=== PATIENT | female | born 2000 | race Caucasian/White ===

== ENCOUNTER → 2019-02-16 | Outpatient (CLI) | payer OTHER ==
--- NOTE | 2019-02-16 13:50 | PFTRPT ---
Height: 70.00 Inches Weight: 179.00 Lbs BSA: 1.99 Diagnosis: POSSIBLE ASTHMA DATE OF STUDY: 02/16/2019 ORDERED BY: Allan Wilson Jr., PA-C Spirometry: Pre and post bronchodilator study of excellent technical quality. Forced vital capacity reduced. FEV1 out of proportion. Obstructive index is, therefore, reduced. Flow Volume Loop: Expiratory limb of the flow volume loop is consistent with significant flow rate limitation. No significant bronchodilator response identified. Lung Volumes: Total lung capacity reduced. Residual volume is in proportion. Diffusing Capacity: Diffusing capacity reduced but is appropriate for alveolar volume. Hemoglobin: Hemoglobin acceptable at 14.5. Airway Mechanics: Airway resistance and conductance are normal. Patient had significant difficulties reproducing the required maneuvers. IMPRESSION: Suspect at least some degree of obstructive impairment without bronchodilator response. Cannot rule out concomitant restrictive defect due to the above restraints. Please correlate clinically. MTDD
== END ==
LOC: M CARPUL 12:49
PROVIDERS: ATTEND Physician Assistant
DX: J45.909 Unspecified asthma, uncomplicated (principal)

== ENCOUNTER 2019-05-17 11:59 | Emergency (ER) | payer OTHER ==
[~2019-05-17] VITALS: Ht 177.8 cm; Wt 84.2 kg
--- NOTE | 2019-05-17 13:22 | REP ---
Right foot four views : There is no fracture or dislocation. Mineralization and joint spaces are normal. There are no calcifications or foreign bodies. Impression: Negative right foot . Electronically Signed by Damian Ellis MD 05/17/2019 01:13 P
[2019-05-17 13:55] VITALS: BP 141/82
== END 2019-05-17 14:20 | disposition home or self-care (01) ==
LOC: M ED 11:59
DX: S93.601A Unspecified sprain of right foot, initial encounter (principal); Y92.009 Unspecified place in unspecified non-institutional (private) residence as the place of occurrence of the external cause; Y93.83 Activity, rough housing and horseplay; Y99.9 Unspecified external cause status; X58.XXXA Exposure to other specified factors, initial encounter

== ENCOUNTER 2019-10-24 13:30 | Emergency (ER) | payer OTHER ==
[~2019-10-24] VITALS: Ht 177.8 cm; Wt 87.6 kg
[2019-10-24 13:30] VITALS: BP 131/72
[2019-10-24] MEDS ORDERED: FLAG500T PO (14:50)
[2019-10-24 16:11] LABS: CHLAMYDIA DNA AMPLIFICATION NEGATIVE (NEGATIVE); GC DNA AMPLIFICATION POSITIVE (NEGATIVE)
== END 2019-10-24 14:58 | disposition home or self-care (01) ==
LOC: M ED 13:30
DX: N76.0 Acute vaginitis (principal); R06.02 Shortness of breath

== ENCOUNTER → 2019-10-24 | Outpatient (CLI) | payer OTHER ==
[~2019-10-24] MED LIST: FLAG500T PO
--- NOTE | 2019-10-25 03:16 | REP ---
TWO-VIEW CHEST: REASON: Dyspnea. COMPARISON: No priors. FINDINGS: The superior mediastinal structures are midline. The cardiac silhouette is unremarkable in size, shape, and position. The diaphragmatic surfaces of the lungs are regular, and the costophrenic angles are clear. The pulmonary saldaña are clear. The imaged osseous structures are intact. IMPRESSION: There is no acute cardiopulmonary disease. Electronically Signed by Jose Cesar DO 10/25/2019 11:35 A
== END ==
LOC: M RAD 15:19
PROVIDERS: ATTEND Nurse Practitioner Adult Health
DX: R06.02 Shortness of breath (principal)

== ENCOUNTER → 2019-11-14 | Emergency (ER) | payer OTHER | END | disposition left against medical advice (07) | LOC: M ED 18:24 | DX: Z53.21 Procedure and treatment not carried out due to patient leaving prior to being seen by health care provider (principal) ==

== ENCOUNTER 2020-01-17 20:47 | Emergency (ER) | payer OTHER ==
[~2020-01-17] VITALS: Ht 177.8 cm; Wt 97.0 kg
[2020-01-18] MEDS ORDERED: NS 1,000 ML IV ONE (01:00)
[2020-01-18] MEDS ORDERED: diphenhydrAMINE 50MG/ML VIAL (J1200) IV STA (01:04)
[2020-01-18] MEDS ORDERED: METOCLOPRAMIDE INJ 10MG/2ML VIAL (J2765 PER 1) IV ONE (01:15)
[2020-01-18] MEDS ORDERED: KETOROLAC 30 MG/ML 1ML VIAL IV ONE (01:15)
[2020-01-18 01:17] LABS: BASO % 0.6 % (0.0-1.0); EOS # 0.1 10^3/uL (0.0-0.5); EOS % 1.1 % (0.0-3.0); HEMATOCRIT 44.1 % (36.0-47.0); HEMOGLOBIN 14.6 g/dl (12.0-15.5); LYMPH # 2.3 10^3/uL (1.5-5.0); LYMPH % 36.6 % (24.0-44.0); MEAN CORPUSCULAR HGB CONC 33.1 g/dl (32.0-36.5); MEAN CORPUSCULAR VOLUME 87.7 fl (80.0-96.0); MONO # 0.4 10^3/uL (0.0-0.8); MONO % 6.2 % (0.0-5.0); NEUTROPHILS # 3.5 10^3/uL (1.5-8.5); NEUTROPHILS % 55.2 % (36.0-66.0); PLATELET COUNT, AUTOMATED 318 10^3/uL (150-450); RED BLOOD COUNT 5.03 10^6/uL (4.00-5.40); WHITE BLOOD COUNT 6.3 10^3/uL (4.0-10.0)
--- NOTE | 2020-01-18 02:00 | REPVR ---
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 Radiation optimization: All CT scans at this facility use at least one of these dose optimization techniques: automated exposure control; mA and/or kV adjustment per patient size (includes targeted exams where dose is matched to clinical indication); or iterative reconstruction. COMPARISON: No relevant prior studies available. FINDINGS: Brain: Normal. No hemorrhage. Unremarkable white matter. No mass effect. Cerebral ventricles: No ventriculomegaly. Bones/joints: Unremarkable. No acute fracture. Paranasal sinuses: Visualized sinuses are unremarkable. No fluid levels. Mastoid air cells: Visualized mastoid air cells are well aerated. Soft tissues: Unremarkable. IMPRESSION: No acute intracranial abnormality. Electronically signed by: Capri Wray On 01/18/2020 02:00:36 AM
[2020-01-18] MEDS ORDERED: REGL10TA6 PO (02:05)
[2020-01-18] MEDS ORDERED: KETO10TAB PO (02:05)
[2020-01-18 02:07] LABS: POTASSIUM SERUM 4.5 MEQ/L (3.5-5.1)
[2020-01-18 02:12] VITALS: BP 129/60
[2020-01-19 16:10] LABS: Lyme Disease IgG/IgM Antibodie <0.91 ISR (0.00-0.90); Lyme Disease IgM Ab Quantitati <0.80 index (0.00-0.79)
== END 2020-01-18 02:27 | disposition home or self-care (01) ==
LOC: M ED 20:47
DX: R51.9 Headache, unspecified (principal); J45.909 Unspecified asthma, uncomplicated; Z79.899 Other long term (current) drug therapy
CPT/HCPCS: 70450; 80047; 83735; 84132; 84702; 85025; 86617; 96361; 96374; 96375; 99284; J1200; J1885; J2765